=== PATIENT | female | born 1975 | race Caucasian/White ===

== ENCOUNTER 2018-03-09 00:44 | Emergency (ER) | payer OTHER ==
[~2018-03-09] VITALS: Ht 160 cm; Wt 63.5 kg
[~2018-03-09 00:44] MED LIST: ACCUNEB SO1.25 MG/1 INH; AMBIEN 5 MG TABL5 M1 PO; AUGMENTIN 875875 MG PO; BREO ELLIPTA 11 EACH IH; CLONAZEPAM 1 MG1 M1 PO; HYDROXYZINE HCL25 M1 PO; MEDROLDOSEPACK PO; NEBULIZER MISCELL; PREDNISONE 10 M10 MG PO; PROAIR HFA8.5 GM; PROMETH-CODEIN 65 ML PO; PROZAC10 MG PO; RISPERDAL0.5 MG PO
[2018-03-09] MEDS ORDERED: AUGMENTIN 875-1 EACH PO (00:58)
[2018-03-09] MEDS ORDERED: ZOFRAN ODT4 MG PO (00:58)
[2018-03-09] MEDS ORDERED: TESSALON PERLE100 MG PO (00:58)
[2018-03-09 01:13] VITALS: BP 153/82
== END 2018-03-09 01:13 | disposition home or self-care (01) ==
LOC: M.ERS 00:44
DX: J32.0 Chronic maxillary sinusitis (principal); F31.9 Bipolar disorder, unspecified; F17.210 Nicotine dependence, cigarettes, uncomplicated

== ENCOUNTER 2018-11-16 17:35 | Emergency (ER) | payer OTHER ==
[~2018-11-16] VITALS: Ht 160 cm; Wt 72.6 kg
[~2018-11-16 17:35] MED LIST changes: +AUGMENTIN 875-1 EACH PO; +TESSALON PERLE100 MG PO; +ZOFRAN ODT4 MG PO
[2018-11-16 17:41] VITALS: BP 154/91
[2018-11-16] MEDS ORDERED: BUSPIRONE HCL10 MG PO (17:50)
[2018-11-16] MEDS ORDERED: ZANTAC 150MG T150 MG PO (17:50)
[2018-11-16] MEDS ORDERED: HYDROXYZINE HCL25 M1 PO (17:51)
[2018-11-16] MEDS ORDERED: ETODOLAC500 MG PO (17:51)
== END 2018-11-16 18:26 | disposition home or self-care (01) ==
LOC: M.ERS 17:35
DX: S50.11XA Contusion of right forearm, initial encounter (principal); F31.9 Bipolar disorder, unspecified; F17.210 Nicotine dependence, cigarettes, uncomplicated; Z98.890 Other specified postprocedural states; W22.8XXA Striking against or struck by other objects, initial encounter; Y93.89 Activity, other specified; Y92.89 Other specified places as the place of occurrence of the external cause; Y99.8 Other external cause status

== ENCOUNTER 2019-01-18 21:12 | Emergency (ER) | payer OTHER ==
[~2019-01-18] VITALS: Ht 162.6 cm; Wt 81.6 kg
[~2019-01-18 21:12] MED LIST changes: +BUSPIRONE HCL10 MG PO; +ETODOLAC500 MG PO; +ZANTAC 150MG T150 MG PO
[2019-01-18] MEDS ORDERED: PROZAC20 MG (21:21)
[2019-01-18] MEDS ORDERED: CLONAZEPAM 1 MG1 M1 (21:21)
[2019-01-18 21:39] LABS: ABSOLUTE BASOPHILS 0.1 thou/uL (0.0-0.2); ABSOLUTE EOSINOPHILS 0.1 thou/uL (0.0-0.7); ABSOLUTE LYMPHOCYTES 2.2 thou/uL (0.8-5.3); ABSOLUTE MONOCYTES 0.9 thou/uL (0.0-1.2); ABSOLUTE NEUTROPHILS 7.9 thou/uL (1.6-8.1); BASOPHILS 0.9 %; EOSINOPHILS 0.8 %; HEMATOCRIT 34.3 % (37.0-47.0); HEMOGLOBIN 11.3 gm/dL (12.0-15.0); LYMPHOCYTES 19.8 %; MCH 28.4 pg (26.0-34.0); MCHC 32.9 g/dL (28.0-37.0); MCV 86.3 fL (80.0-100.0); MONOCYTES 8.1 %; MPV 7.7 fl. (7.2-11.1); NUCLEATED RBCS 0 /100WBC; PLATELET COUNT* 404 thou/uL (150-400); POLYS 70.4 %; RBC 3.97 mil/uL (4.20-5.00); RDW-CV 15.4 % (10.5-14.5); WBC 11.3 thou/uL (4.0-11.0)
[2019-01-18 21:47] LABS: ANION GAP 12 mmol/L (7-16); BUN 6 mg/dL (7-18); CALCIUM 8.6 mg/dL (8.5-10.1); CHLORIDE 100 mmol/L (98-107); CO2 25 mmol/L (21-32); CREATININE 0.6 mg/dL (0.6-1.3); GLUCOSE 110 mg/dL (70-99); POTASSIUM 4.1 mmol/L (3.5-5.1); SODIUM 137 mmol/L (136-145)
[2019-01-18 21:50] LABS: URINE BLOOD TRACE (Negative); URINE CLARITY CLEAR; URINE COLOR YELLOW; URINE GLUCOSE-RANDOM NEGATIVE (Negative); URINE KETONES NEGATIVE (Negative); URINE LEUKOCYTES-REFLEX NEGATIVE (Negative); URINE NITRITE-REFLEX NEGATIVE (Negative); URINE PROTEIN NEGATIVE (Negative)
[2019-01-18 21:53] LABS: ICTOTEST (BILI CONFIRMATORY) Positive (Negative); URINE BILIRUBIN 2+ (Negative)
[2019-01-18 21:58] LABS: ALBUMIN 3.1 g/dL (3.4-5.0); ALKALINE PHOSPHATASE 141 U/L (46-116); NT-PRO BRAIN NAT PEPTIDE 73 pg/mL (<300); SGOT 16 U/L (15-37); SGPT 21 U/L (30-65); TOTAL BILIRUBIN 0.3 mg/dL (<0.1-1.0); TOTAL PROTEIN 7.6 g/dL (6.4-8.2); TROPONIN-I LEVEL <0.06 ng/mL (<0.06)
[2019-01-19] MEDS ORDERED: AUGMENTIN 875-1 EACH PO (00:05)
[2019-01-19] MEDS ORDERED: ALBUTEROL2.5 MG/31 INH (00:05)
[2019-01-19] MEDS ORDERED: PROAIR HFA8.5 GM INH (00:05)
[2019-01-19] MEDS ORDERED: PREDNISONE50 MG PO (00:05)
[2019-01-19 00:40] VITALS: BP 108/64
--- NOTE | 2019-01-19 10:21 | EKG ---
[place] [address] ELECTROCARDIOGRAM REPORT Name: MIKE STIRNGER Room: [facility]#: [id number] Admission: 01/18/19 Attend Phys: Discharge: 01/19/19 Date of : 71 Report #: [id number] THIS REPORT FOR: //name// [facility] ED Test Date: 2019-01-18 Test Time: 21:19:38 Pat Name: MIKE STRINGER Department: Room: Gender: F Media Relations Manager: [place] : 1975 Requested By: Shivani Yi Order Number: [id number] MD: Kade Petit Measurements Intervals [place] Rate: 100 P: 88 MI: 141 QRS: 59 QRSD: 116 T: 51 QT: 369 QTc: 476 Interpretive Statements Sinus tachycardia Left atrial enlargement Nonspecific intraventricular conduction delay Artifact in lead(s) I,III,aVL,V1,V2,V3,V4,V5,V6 No previous ECG available for comparison Electronically Signed On 01-19-2019 10:21:06 CDT by Kade Petit [email or web address] <ELECTRONICALLY SIGNED> By: Kade Petit MD, [facility] 01/19/19 1021 18 18 Kade Petit MD, [facility] /EPI
== END 2019-01-19 00:42 | disposition home or self-care (01) ==
LOC: M.ERS 21:12
PROVIDERS: Emergency Medicine
DX: J18.9 Pneumonia, unspecified organism (principal); F31.9 Bipolar disorder, unspecified; F41.9 Anxiety disorder, unspecified; F17.210 Nicotine dependence, cigarettes, uncomplicated; Z98.890 Other specified postprocedural states

== ENCOUNTER → 2019-03-26 | Outpatient (CLI) | payer OTHER ==
[~2019-03-26] MED LIST changes: +ALBUTEROL2.5 MG/31 INH; +CLONAZEPAM 1 MG1 M1; +PREDNISONE50 MG PO; +PROAIR HFA8.5 GM INH; +PROZAC20 MG
== END ==
LOC: M.CT 03-22 14:37
DX: E04.1 Nontoxic single thyroid nodule (principal); R91.8 Other nonspecific abnormal finding of lung field; E27.9 Disorder of adrenal gland, unspecified; M47.815 Spondylosis without myelopathy or radiculopathy, thoracolumbar region; M51.87 Other intervertebral disc disorders, lumbosacral region; I25.10 Atherosclerotic heart disease of native coronary artery without angina pectoris

== ENCOUNTER → 2019-04-13 | Outpatient (CLI) | payer OTHER ==
--- NOTE | 2019-04-15 07:08 | PATH ---
[address] [address] PATHOLOGY RPT PROCEDURE Name: MIKE STRINGER Room: [facility]#: [id number] Admission: 04/13/19 Date of : 71 Discharge: Report #: [id number] Path Case #: [id number] Note [facility] Accession Number: [id number] TESTS RESULT FLAG UNITS REF RANGE LAB Clinician Provided Cytology Information No. of containers..01 Other (Miscellaneous) Source: LT MID THYROID DIAGNOSIS: LT MID THYROID INCONCLUSIVE. [place] CATEGORY III. ATYPIA OF UNDETERMINED SIGNIFICANCE. LOW CELLULARITY SPECIMEN WITH SCATTERED THYROID FOLLICULAR CELLS SHOWING NUCLEAR ATYPIA AND BACKGROUND OF MODERATE COLLOID. SEE COMMENT. COMMENT: A RETAIN RNA SAMPLE WILL BE SUBMITTED AND WILL BE THE SUBJECT OF A SEPARATE REPORT. Pathologist ICD10: 02 R89.6 Signed out by: 02 Harshad Lopez MD, Pathologist NPI- [id number] Performed by: Enrique Meredith, Pier Hand ([facility]) Gross description: 01 18ML, RED, CLOUDY /LCS 07/27/1840 0000 Local FLAG LEGEND: L-Low Normal,H-High Normal,LL-Alert Low,HH-Alert High <-Panic Low,>-Panic High,A-Abnormal,AA-Critical Abnormal Performed at: [address] [place] [address] Marvin Colón MD, [address] [place] [address] [address] [place] [address] Harshad Lopez MD, Specimen Comment: A courtesy copy of this report has been sent to Specimen Comment: [phone]. Specimen Comment: Report sent to Performed at: [address], [place], [place] [id number] MD Marvin Colón MD Phone: [phone]
== END ==
LOC: M.ULTRA 08:10
DX: E04.1 Nontoxic single thyroid nodule (principal); D34 Benign neoplasm of thyroid gland; Z79.899 Other long term (current) drug therapy

== ENCOUNTER 2020-04-04 17:52 | Emergency (ER) | payer OTHER ==
[~2020-04-04] VITALS: Ht 170.2 cm; Wt 86.2 kg
[2020-04-04] MEDS ORDERED: TROKENDI XR25 MG PO (18:03)
[2020-04-04 20:51] VITALS: BP 140/70
== END 2020-04-04 20:52 | disposition home or self-care (01) ==
LOC: M.ERS 17:52
DX: G43.909 Migraine, unspecified, not intractable, without status migrainosus (principal); F17.210 Nicotine dependence, cigarettes, uncomplicated; Z98.890 Other specified postprocedural states

== ENCOUNTER 2021-08-24 22:25 | Emergency (ER) | payer OTHER ==
[~2021-08-24] VITALS: Ht 165.1 cm; Wt 87.0 kg
[~2021-08-24 22:25] MED LIST changes: +TROKENDI XR25 MG PO
[2021-08-24] MEDS ORDERED: HYDROCODON-ACE1 EAC8 PO (22:58)
[2021-08-24 23:15] VITALS: BP 124/62
== END 2021-08-24 23:15 | disposition home or self-care (01) ==
LOC: M.ERS 22:25
DX: M25.561 Pain in right knee (principal); F41.9 Anxiety disorder, unspecified; F31.9 Bipolar disorder, unspecified; F17.210 Nicotine dependence, cigarettes, uncomplicated; Z98.890 Other specified postprocedural states; Z79.51 Long term (current) use of inhaled steroids; Z79.899 Other long term (current) drug therapy